=== PATIENT | male | born 1965 | race Caucasian/White ===

== ENCOUNTER 2019-03-29 10:40 | Day surgery (SDC) | payer BC ==
--- NOTE | 2019-03-23 17:15 | RAD REPORT ---
EXAM DESCRIPTION: Nabila Méndez (2 Views)03/23/2019 5:00 pm CLINICAL HISTORY: Preop for genitourinary surgery Hypertension COMPARISON: None FINDINGS: The lungs appear clear of acute infiltrate. The heart is normal size IMPRESSION: No acute abnormalities displayed
[2019-03-23 17:25] LABS: Absolute Lymphocytes (CBC) 1.5 K/uL (0.7-4.9); Basophils % 0.5 % (0-1.3); Hematocrit 40.1 % (39.6-49.0); Lymphocytes % 12.7 % (15.3-44.8); MPV 9.3 fL (7.6-11.3); RBC Red Blood Cell Count 4.64 M/uL (4.33-5.43)
[2019-03-23 17:25] LABS: Urine Appearance CLEAR; Urine Blood 3+ (NEG); Urine Color DK YELLOW; Urine Glucose NEGATIVE (NEG); Urine Protein 2+ (NEG); Urine Specific Gravity >=1.030 (1.005-1.030)
[2019-03-23 17:30] LABS: Urine Bilirubin 1+ (NEG)
[2019-03-23 17:31] LABS: Urine Microscopic Reflex ORDER UMIC
[2019-03-23 17:31] LABS: Protime INR 1.32
[2019-03-23 17:37] LABS: Urine Bacteria <20 /HPF (NONE SEEN); Urine Culture Reflex Order NOT NEEDED; Urine Mucus 2+ /HPF (NONE SEEN); Urine RBC 20-50 /HPF (NONE SEEN)
[2019-03-23 17:40] LABS: Potassium 3.4 mmol/L (3.5-5.1)
[2019-03-23 17:58] LABS: Phosphorus 1.7 mg/dL (2.5-4.9); Uric Acid 6.3 mg/dL (3.5-7.2)
--- NOTE | 2019-03-23 18:34 | EKG ---
Test Date: 2019-03-23 Test Time: 16:42:48 Supervisor Molding: SKG MEASUREMENT RESULTS: Intervals: Rate: 73 MI: 176 QRSD: 98 QT: 396 QTc: 436 [place]: P: 18 MI: 176 QRS: 12 T: 139 INTERPRETIVE STATEMENTS: Normal sinus rhythm T wave abnormality, consider lateral ischemia Abnormal ECG No previous ECG available for comparison Electronically Signed On 03-23-19 18:32:50 BEVEL [employer]AR GENERATOR OPERATOR by Librado Underwood
[2019-03-29] MEDS ORDERED: Ringers Lactate 1,000 ML IV ONE (11:01)
[2019-03-29] MEDS ORDERED: GENTAMICIN 80 MG/100 ML BAG 80 MG/100 ML BAG IV ONE (11:02)
--- NOTE | 2019-03-29 11:08 | RAD REPORT ---
EXAM DESCRIPTION: RAD - Abdomen 1 View (KUB) - 03/29/2019 11:02 am CLINICAL HISTORY: SAME DAY SURGERY, ROOM 5 Pain COMPARISON: No comparisons FINDINGS: The bowel gas pattern is non-obstructive. No evidence of free air or pneumatosis. No suspi cious calcifications. No significant bony findings. IMPRESSION: Negative examination.
[2019-03-29] MEDS ORDERED: PROPOFOL 200 MG/20 ML VIAL IV ONE ×2 (12:08→12:44)
[2019-03-29] MEDS ORDERED: FENTANYL CITR 100 MCG/2 ML ONE ×2 (12:08→13:17)
[2019-03-29] MEDS ORDERED: MIDAZOLAM HCL 2 MG/2 ML INJ ONE (12:08)
[2019-03-29] MEDS ORDERED: ONDANSETRON 4 MG/2 ML VIAL ONE (12:10)
[2019-03-29] MEDS ORDERED: LIDOCAINE 2% MPF 5 ML VIAL ONE (12:26)
[2019-03-29] MEDS ORDERED: ROCURONIUM 50 MG/5 ML VIAL IV ONE (12:38)
[2019-03-29] MEDS ORDERED: GLYCOPYRROLATE 0.2 MG/ML SYR ONE ×2 (12:47→12:57)
[2019-03-29] MEDS ORDERED: EPHEDRINE SULF 50 MG/ML VIAL ONE (12:57)
[2019-03-29] MEDS ORDERED: Mastisol Adhesive Liq ONE (13:42)
--- NOTE | 2019-03-29 14:01 | RAD REPORT ---
EXAM DESCRIPTION: RAD - Cystography - 03/29/2019 1:52 pm CLINICAL HISTORY: CYSTOGRAPHY W/ RT LASER AND STENT COMPARISON: No comparisons FINDINGS: Total fluoro time: 2 minutes and 41 seconds
[2019-03-29] MEDS: MEPERIDINE HCL 25 MG/0.5 ML ONE ×2 (14:25→14:30)
[2019-03-29 17:33] VITALS: BP 122/68; TEMP 97.1; O2SAT 97
== END 2019-03-29 15:43 | disposition home or self-care (01) ==
LOC: OR 10:40
PROVIDERS: ATTEND Urology
PROC: 0T768DZ Dilation of Right Ureter with Intraluminal Device, Via Natural or Artificial Opening Endoscopic (ICD-10-PCS; 2019-03-29)
PROC: 0TF68ZZ Fragmentation in Right Ureter, Via Natural or Artificial Opening Endoscopic (ICD-10-PCS; principal; 2019-03-29 13:00)
DX: N20.1 Calculus of ureter (principal); I10 Essential (primary) hypertension; G47.30 Sleep apnea, unspecified; E66.2 Morbid (severe) obesity with alveolar hypoventilation
CPT/HCPCS: 52356; 93005; 87088; 85025; 87086; 80048; 36415; 84100; 85610; 84550; 85730; 74018; 71046; 51600; 74430; G0103; J2704 ×2; J2250; J3010 ×2; J2175; J7120; J1580; J2405; 81003; 81015